=== PATIENT | female | born 1970 | race Caucasian/White ===

== ENCOUNTER 2016-07-11 09:44 | Emergency (ER) | payer MEDICARE | END 2016-07-11 12:08 | disposition home or self-care (01) | LOC: ER 09:44 | DX: B34.9 Viral infection, unspecified (principal); J11.1 Influenza due to unidentified influenza virus with other respiratory manifestations; I25.2 Old myocardial infarction; I10 Essential (primary) hypertension; E11.9 Type 2 diabetes mellitus without complications; Z79.4 Long term (current) use of insulin; Z90.710 Acquired absence of both cervix and uterus; Z90.49 Acquired absence of other specified parts of digestive tract; Z88.5 Allergy status to narcotic agent | CPT/HCPCS: 36415; 87502; 96361; 96374 ==